=== PATIENT | male | born 1960 | race Caucasian/White ===

== ENCOUNTER 2016-08-17 06:21 | Day surgery (SDC) | payer OTHER ==
[~2016-08-17] VITALS: Ht 182.9 cm; Wt 113.2 kg
[2016-08-17] VITALS (9 sets, daily range): BP systolic 92–153; BP diastolic 59–97; PULSE 62–86; RESP 1–17; O2SAT 94–100
[~2016-08-17 06:21] MED LIST: HYDR-4003 PO; Levofloxacin 500 mg/100 mL D5W IV ONE; OMEP20TA86 PO
[2016-08-17] MEDS ORDERED: Propofol 10 mg/mL 20 mL Inj ONE (06:22)
[2016-08-17] MEDS ORDERED: Ondansetron 2 mg/mL 2 mL Inj ONE (06:22)
[2016-08-17] MEDS ORDERED: fentaNYL-PF 50 mCg/mL 2 mL Inj ONE (06:22)
[2016-08-17] MEDS ORDERED: Dexamethasone 4 mg/mL Inj ONE (06:22)
[2016-08-17] MEDS ORDERED: levoFLOXacin 500 mg/100 mL D5W Premix IV ONE (06:57)
[2016-08-17] MEDS: Lactated Ringer's 1,000 ML IV SCH ×3 (07:36→09:55)
[2016-08-17] MEDS ORDERED: Belladonna Alk-Opium 60 mg Rectal Suppository RECTAL ONE ×2 (08:22→09:02)
[2016-08-17] MEDS ORDERED: Phenylephrine 10,000 mCg/mL Inj IVPUSH PRN (08:25)
[2016-08-17] MEDS ORDERED: Lactated Ringer's 500 ML IV PRN (08:25)
[2016-08-17] MEDS ORDERED: Dexamethasone 4 mg/mL Inj IVPUSH PRN (08:25)
[2016-08-17] MEDS ORDERED: EPHEDrine Sulfate 50 mg/mL Inj IVPUSH PRN (08:25)
[2016-08-17] MEDS ORDERED: fentaNYL-PF 50 mCg/mL 2 mL Inj IVPUSH PRN (08:25)
[2016-08-17] MEDS ORDERED: Atropine 0.4 mg/mL Inj IVPUSH PRN (08:25)
[2016-08-17] MEDS ORDERED: Lactated Ringer's 1,000 ML IV SCH (08:25)
[2016-08-17] MEDS ORDERED: HYDROmorphone 1 mg/mL Inj IVPUSH PRN (08:25)
[2016-08-17] MEDS ORDERED: Labetalol 5 mg/mL 4 mL Inj IV PRN (08:25)
[2016-08-17] MEDS ORDERED: MetoCLOpramide 5 mg/mL 2 mL Inj IVPUSH PRN (08:25)
[2016-08-17] MEDS ORDERED: Ondansetron 2 mg/mL 2 mL Inj IVPUSH PRN (08:25)
--- NOTE | 2016-08-17 08:25 | PCM.HPANE ---
Patient Data Date of Service: Aug 17, 2016 Surgeon Admitting Provider: Attending Provider:Lynn Zelaya MD Primary Care Physician:Adrián Sinha MD Other Provider:Lazaro Cantu Anesthesia Reason for Visit Left Kidney Stone Ht/WT & BMI Height (Feet): 6 Height (Inches): 0.00 Weight (Kilograms): 113.200 Body Mass Index 33.00 Allergies Coded Allergies: Penicillins (Verified Allergy, Severe, body rash, 12/22/08) oxycodone (Verified Allergy, Severe, body rash, 12/22/08) Pt was taking amoxicillin with oxycodone and can not honestly say which one caused problems with all over body rash. Past Anesthesia History Anesthesia History: Denies:: Abnormal Airway, Anesthesia Reactions, Difficult Intubation, Fam Anesthesia Reaction, Fam Malignant Hypertherm, Malignant Hyperthermia Diabetes History Hx Diabetes?: No Medications Home Meds Incl Beta Annie: No Reported Medications Omeprazole 20 Mg Tablet.dr20 Mg PO DAILY 08/16/16 Hydrocodone-Acetaminophen 5-325 mg 1 Each Tablet2 Tablet PO Q6H PRN For Pain Ref 0 08/16/16 Discontinued Reported Medications Omeprazole-Expunged Drug, Do Not Renew! 20 Mg Capcr20 Mg PO DAILY Ref 0 07/17/08 History History of ENT Problems?: No HEENT History: Denies:: Abnormal Airway Cataracts Difficult Intubation Dysphagia Glaucoma Hearing Problem Sinus Problem TMJ Denture Type: None Teeth Condition: Within Normal Limits Hx of Heart Problems?: No Cardiovascular History: Denies:: AICD Abdominal Aortic Aneurism Atrial Fibrillation Cardiac Surgery Chest Pain Congestive Heart Failure Coronary Artery Disease Edema Heart Murmur Hypertension Irregular Heartbeat Pacemaker Peripheral Vascular Rheumatic Fever Thrombophlebitis Valvular Heart Disease Hx of Respiratory Problem?: No Respiratory History: Denies:: Oxygen Administration Use of C-PAP Machine Hx Neurologic Problems?: No Hx of GI Problems?: Yes Hx of Problems?: Yes Genitourinary History: Positive for:: Kidney Stones (left stone current problem, hx of prior stones, eswl) Male Hx: Denies:: Prostate Problems Hx Musculoskeletal Problems?: No Hx of Psycho/Social Problems?: No Hx Surgeries?: Yes (Eswl) Hx Any Other Health Problems?: Yes Other History: Denies:: Cancer Thyroid Disease Hx Diabetes: No Have You Smoked inLast 12 mo: No Stop/Bang S-Snoring: Do You Snore Loudly: Yes T-Tired: feel tired, fatigued: Yes O-Obsered: Observed not breath: No P-Blood Pressure: treated: No B- Body Mass Index > 35 kg/m2: No A- Age over 50: Yes N- Neck Large Circumference: No G- Gender Male: Yes BRIDGETTE Total Score: 4 BRIDGETTE Risk Assessment: High Risk, =/>3 Yes Risk Assessment Category Category 1A: Patient has history of documented sleep apnea, and HAS NOT received any narcotic, sedative or anesthesia administration during this stay. Category 1B: Patient has history of documented sleep apnea, and HAS received any narcotic , sedative or anesthesia administration during this stay Category 2: Patient has SUSPECTED Obstructive Sleep Apnea, and HAS received any narcotic , sedative or anesthesia administration during this stay. Category 3: Patient has SUSPECTED Obstructive Sleep Apnea and HAS NOT received narcotic, sedative or anesthesia administration during this stay. Category 4: Outpatient in Procedural Areas with known sleep apnea or who screen positive for High Risk via the STOP/BANG questionnaire. Exam Exam Vital Signs Vital Signs Date Time Temp Pulse Resp B/P Pulse Ox O2 Delivery O2 Flow Rate FiO2 08/17/16 06:51 36 68 16 153/94 96 Room Air General Appearance: Alert, Oriented X3, Cooperative, No Acute Distress HEENT/AIRWAY: MP 2 Lungs: Normal Air Movement Heart: Exam Unremarkable Meds/Labs/Diagnostics Admission Meds Current Medications Lactated Ringer's (Lr) 1,000 ml @ 120 mls/hr Q8H20M IV Last administered on t 07:44; Start 08/17/16 at 05:00; Stop 08/17/16 at 13:19 Plan Impression Patient chart reviewed, patient interviewed and anesthestic plan with risks, benefits, and alternatives discussed, and informed consent obtained. ASA Physical Status: ASA2 Mod Systemic Disease Anesthetic Plan: GA Bene/Risks/Altern/Consents: Yes HP Complete Prior to Induction: Yes Ignacio Rosado MD Aug 17, 2016 08:25
[2016-08-17] MEDS ORDERED: HYDROcodone-APAP 5-325 mg Tablet PO PRN (09:30)
--- NOTE | 2016-08-17 09:37 | PCM.ANEP1 ---
Post Anesthesia PACU Phase 1 Assessment Date of Service: Aug 17, 2016 Vital Signs Vital Signs Date Time Temp Pulse Resp B/P Pulse Ox O2 Delivery O2 Flow Rate FiO2 08/17/16 06:51 36 68 16 153/94 96 Room Air Anesthetic Administered: GA Level of Alertness: Drowsy, not talking Pain: No Nausea or Vomiting: No CV Function & Hydration Stable: Yes Airway Device: Oralpharangeal Airway Oxygen Delivery: Nasal Cannula Lungs: Normal Air Movement PACU Phase 2 Assessment Complications: No Follow up Care: N/A Patient Instructions Provided: N/A Ignacio Rosado MD Aug 17, 2016 09:37
--- NOTE | 2016-08-17 09:49 | OP ---
[address] [address] OPERATIVE REPORT PATIENT: CARLOZ FLORENTINO I : 1960 MR#: [id number] ADMIT: 08/17/2016 JOB ID: [id number] DATE OF SURGERY: 08/17/2016 SURGEON: Lynn Zelaya M.D. PREOPERATIVE DIAGNOSIS(ES): Left ureteral calculus. POSTOPERATIVE DIAGNOSIS(ES): Left ureteral calculus. PROCEDURE: Cystoscopy, ureteroscopy, laser lithotripsy, stone basketing and insertion of stent. ANESTHESIA: General anesthetic, Dr. Rosado. DESCRIPTION OF PROCEDURE: Under a general anesthetic, the patient was placed in the lithotomy position. The genitalia prepped and draped in a sterile manner. A 22-Ivorian cystoscope was introduced through a normal urethra. A 0.035 Glidewire was advanced to the level of the left renal pelvis. Over this, a 15-Ivorian balloon dilation catheter was used to dilate the distal ureter. A 7-Ivorian semi rigid ureteroscope was advanced alongside the wire up to the level of the iliac vessels. No calculus was visualized. Ureteroscope was withdrawn and a 15-Ivorian access sheath was then passed over the wire to the outer edge of the SI joint position fluoroscopically. A flexible ureteroscope was then advanced through the access sheath. The stone was well visualized. Unchanged in position from the CT scan. A 273 micron laser fiber was then used to with the holmium laser. The stone was broken into multiple pieces. A nitinol tipless basket was then used to remove all the larger fragments. Several sub millimeter size fragments were ignored. The same Glidewire was then advanced through the access sheath and the access sheath removed. A 6-Ivorian 24 cm double-J stent was then passed over the wire. When the stent was confirmed to be in good position, the wire was withdrawn. The patient tolerated the procedure well. A B and O suppository was given for postoperative analgesia. The patient left the operating room in good condition.
== END 2016-08-17 23:59 | disposition home or self-care (01) ==
LOC: SAS 06:21
PROVIDERS: ATTEND Urology
DX: N20.2 Calculus of kidney with calculus of ureter (principal); Z87.442 Personal history of urinary calculi; Z80.0 Family history of malignant neoplasm of digestive organs
CPT/HCPCS: 52356; 76000; 82360; C2617; J1100; J2250; J2405; J3010; J7120